=== PATIENT | male | born 1950 | race Caucasian/White ===

== ENCOUNTER → 2016-11-15 | Outpatient (CLI) | payer BC ==
[~2016-11-15] MED LIST: ASPI81TA21 PO; COENCAP9; FISHOIL PO; MOMETASONE TOP; NAPROXEN PO; OMEG10007 PO; OPTIRAY 320 IV PRN; PANT1TAB48 PO; Vitamin d3
--- NOTE | 2016-11-15 08:18 | DIAGNOSTIC IMAGING REPORT ---
(CHEST) THORAX WITH, ABD/PELVIS IV AND ORAL CONT CLINICAL HISTORY: 66 years-old Male presenting with NON-HODGKIN'S LYMPHOMA. TECHNIQUE: Multidetector CT of the chest, abdomen, and pelvis was performed after the administration of intravenous contrast. IV contrast: 118 mL of Optiray 320. COMPARISON: 03/15/2016. CT DOSE: The estimated cumulative dose is 616.22 mGy.cm. FINDINGS: Clinical Trial Data Manager topogram: Numerous surgical clips noted in the pelvis. CHEST: On soft tissue windows, thyroid and thoracic inlet normal. No axillary, supraclavicular, mediastinal, or hilar lymphadenopathy. Four vessel arch noted. Normal heart size. No pericardial or pleural effusion. On soft tissue windows, minimal dependent changes. No pulmonary nodule or focal infiltrate. Airways patent. On bone windows, multilevel degenerative changes of the thoracic spine. ABDOMEN AND PELVIS: Suggestion of hepatic steatosis. Pancreas, spleen, adrenal glands, and kidneys normal. Moderate stool burden in the rectum. Limited diverticulosis at the junction of the descending and sigmoid colon. Normal appendix. No bowel wall thickening or obstruction. Extensive left periaortic retroperitoneal infiltration extending to the left renal hilum, unchanged from prior and consistent with sequela of prior lymphadenopathy. Encasement of the left renal vessels without narrowing. Similar minimal infiltration of the mesentery noted (series 3 image 39, unchanged. However, interval development of a pathologically enlarged lymph node in the left inguinal region measuring 23 x 16 mm (see series 3 image 81). Additional adjacent enlarged left inguinal lymph node. Pathologically enlarged right inguinal lymph node measuring 16 x 13 mm (see series 3 image 95). Mild atherosclerotic change. Postsurgical changes of prostatectomy. Multilevel degenerative changes of the lumbar spine. Degenerative changes of the sacroiliac joints. Bilateral pars defects at L5. IMPRESSION: 1. Interval development of bilateral inguinal lymphadenopathy. This is concerning for disease recurrence. 2. Unchanged retroperitoneal and mesenteric infiltration, sequela of prior treatment. 3. Suggestion of hepatic steatosis. 4. Postoperative changes from prostatectomy. 5. No evidence of intrathoracic metastatic disease or thoracic lymphadenopathy. Electronically signed by: Clint Land M.D. 11/15/2016 8:17 AM Dictated Date/Time: 11/15/2016 8:02 AM
== END | disposition home or self-care (01) ==
LOC: C.CTS 07:28
PROVIDERS: ATTEND Internal Medicine Hematology & Oncology
DX: C85.93 Non-Hodgkin lymphoma, unspecified, intra-abdominal lymph nodes (principal)

== ENCOUNTER → 2017-05-30 | Outpatient (CLI) | payer OTHER ==
[~2017-05-30] MED LIST changes: +PANT1TAB3 PO; -PANT1TAB48 PO
--- NOTE | 2017-05-30 13:12 | DIAGNOSTIC IMAGING REPORT ---
CHEST CT WITH CONTRAST CT DOSE: 668.57 mGy.cm HISTORY: Follow-up study in a patient with non-Hodgkin's lymphoma C85.93 TECHNIQUE: Multiaxial CT images of the chest were performed following the intravenous administration of contrast. A dose lowering technique was utilized adhering to the principles of ALARA. COMPARISON: The chest 11/15/2016, CT abdomen and pelvis of same day FINDINGS: Homogeneous thyroid. No pathologically enlarged lymph nodes of the chest by CT size criteria. No bulky adenopathy. The heart is normal in size without pericardial effusion. Thoracic aorta is normal in both course and caliber without aneurysm or dissection. The left vertebral artery emanates strictly from the aortic arch. The pulmonary arterial tree is not well opacified, however appears unremarkable. There is no pneumothorax, pleural effusion, focal airspace consolidation or overt pulmonary edema. Mild dependent subsegmental bibasilar atelectasis. Mild biapical pleural-parenchymal scarring. No suspicious pulmonary nodules or masses identified. The central airways are patent. Imaged upper abdominal structures demonstrate no acute abnormality. There is suggested hepatic steatosis. Mild contraction of the gallbladder. Soft tissues are unremarkable. No suspicious lytic or blastic bony lesions identified. Multilevel endplate spurring throughout the spine. IMPRESSION: 1. No acute intrathoracic abnormality identified. 2. No pathologically enlarged lymph nodes of the chest. Electronically signed by: Bassam Payton M.D. 05/30/2017 1:11 PM Dictated Date/Time: 05/30/2017 1:04 PM
--- NOTE | 2017-05-30 13:16 | DIAGNOSTIC IMAGING REPORT ---
CT SCAN OF THE ABDOMEN AND PELVIS WITH IV CONTRAST CLINICAL HISTORY: Lymphoma. COMPARISON STUDY: Abdominal CT dated 11/15/2016, 03/15/2016, and 06/19/2012. PET/CT dated 07/31/2015. TECHNIQUE: Following the IV administration of 94 cc of Optiray 320, CT scan of the abdomen and pelvis is performed from the lung bases to the proximal femora. Images are reviewed in the axial, sagittal, and coronal planes. IV contrast was administered without complication. Automated dose control exposure was utilized. FINDINGS: Lung bases: The heart is top normal in size and without pericardial effusion. The lung bases are clear noting dependent atelectasis. A tiny hiatal hernia is noted. Liver: The contrast-enhanced liver is normal in size and contour. The liver demonstrates diffusely diminished attenuation consistent with hepatic steatosis. There is no intrahepatic biliary ductal dilatation. The hepatic veins and portal veins are patent. Gallbladder: Unremarkable. Spleen: Normal in size and attenuation. The spleen measures 9.4 cm in length. Pancreas: Unremarkable. Adrenal glands: Unremarkable. Kidneys: The contrast enhanced kidneys demonstrate cortical atrophy and are without hydronephrosis. The kidneys enhance symmetrically. Abdominal vasculature: The abdominal aorta is normal in course and caliber noting mild atherosclerotic calcification. Bowel: There is moderate colonic diverticulosis without CT evidence of acute diverticulitis. No bowel obstruction is seen. There is moderate colonic fecal retention. The appendix is well-visualized and normal. Peritoneum: There is no intraperitoneal free air or abdominal ascites. Lymphadenopathy: There is progressive inguinal lymphadenopathy. A left inguinal seen on image #404 measures 4.6 x 3.8 cm (previously measured up to 2.7 cm). Enlarged right inguinal lymph node on image #475 measures 3.4 x 2.6 cm (previously measuring up to 1.8 cm). Soft tissue thickening in the left retroperitoneal space is similar in appearance to prior studies dating back to 2016 and likely represents treated disease. Mild soft tissue thickening in the mesentery is also unchanged. This measures up to 2.2 cm in thickness. No pathologically enlarged mesenteric or pelvic sidewall nodes are identified. Pelvic viscera: The prostate gland is surgically absent. Numerous surgical clips are seen in the pelvis. The bladder is normal as visualized. Surgical clips are identified along the spermatic cord bilaterally. Skeletal structures: The skeletal structures are osteopenic. Mild to moderate lumbosacral spondylosis is observed. Degenerative change is present in the sacroiliac joints. No lytic or blastic lesions are seen. There are bilateral pars defects at L5 with minimal anterolisthesis of L5-S1. IMPRESSION: 1. There is progressive inguinal lymphadenopathy as compared to 11/15/2016 indicating progression of disease. 2. Foci of soft tissue thickening in the retroperitoneal space and mesentery are unchanged from studies dated 2016 and likely represent treated disease. 3. Hepatic steatosis. 4. There are postoperative changes from prostatectomy and pelvic imtiaz dissection. 5. Additional findings as above. Electronically signed by: Jose Wilks M.D. 05/30/2017 1:14 PM Dictated Date/Time: 05/30/2017 1:05 PM
== END | disposition home or self-care (01) ==
LOC: C.CTS 12:30
PROVIDERS: ATTEND Internal Medicine Hematology & Oncology
DX: C85.93 Non-Hodgkin lymphoma, unspecified, intra-abdominal lymph nodes (principal); K76.0 Fatty (change of) liver, not elsewhere classified